=== PATIENT | male | born 1950 | race Caucasian/White ===

== ENCOUNTER → 2018-07-09 | Outpatient (CLI) | payer MEDICARE, BC | END | disposition home or self-care (01) | LOC: HKI 15:00 | DX: M21.959 Unspecified acquired deformity of unspecified thigh (principal) | CPT/HCPCS: 73502; 73564-50 ==

== ENCOUNTER → 2018-07-19 | Outpatient (CLI) | payer MEDICARE, BC | END | disposition home or self-care (01) | LOC: HKI 11:10 | DX: M25.562 Pain in left knee (principal) | CPT/HCPCS: 20610 ==

== ENCOUNTER → 2018-10-18 | Outpatient (CLI) | payer MEDICARE, BC | END | disposition home or self-care (01) | LOC: HKI 13:37 | DX: M25.562 Pain in left knee (principal) | CPT/HCPCS: G0463 ==